=== PATIENT | female | born 1990 | race Caucasian/White ===

== ENCOUNTER 2019-10-09 21:07 | Outpatient (CLI) | payer OTHER, SELFPAY ==
[2019-10-09] VITALS (8 sets, daily range): BP systolic 116–132; BP diastolic 75–84; PULSE 93–113; TEMP 36.7; O2SAT 97; BMI 36.1
[2019-10-09 21:58] LABS: Hematocrit 38.1 % (37-47); Hemoglobin 12.3 g/dL (12.0-15.0); Mean Corp Hgb Conc 32.3 g/dL (32-36); Mean Corpuscular Hgb 28.4 pg (27.0-32.0); Mean Platelet Vol. 11.2 fl (6.2-12.0); Platelet Count 252 K/mm3 (150-450); RBC Distribution Width CV 17.7 % (11.6-14.6); RBC Distribution Width SD 56.5 fl (35.1-43.9); Red Blood Count 4.33 M/mm3 (4.2-5.4); White Blood Count 8.9 K/mm3 (4.4-11.0)
[2019-10-09 22:15] LABS: Protein, Urine (Random) < 6.0 mg/dL (<11.9)
[2019-10-09 22:17] LABS: ALB/GLOB Ratio 0.6 RATIO (0.9-2.4); AST(SGOT) 17 U/L (15-37); Alanine Aminotransfer ALT/SGPT 14 U/L (13-56); Albumin, Serum 2.3 g/dL (3.2-5.0); Alkaline Phosphatase 182 U/L (45-117); Anion Gap 9 (5-15); BUN 6 mg/dL (7-18); BUN/Creat Ratio 8.9 RATIO (10-20); Calcium,Total 8.9 mg/dL (8.5-10.1); Chloride 108 mmol/L (98-107); Creatinine, Serum 0.67 mg/dL (0.55-1.02); EST Glomerular Filtration Rate 112 mL/min (>60); Est Glom Filt Rate - Afr Amer 135 mL/min (>60); Estimated Creatinine Clearance 118.07 ml/min; Glucose 85 mg/dL (74-106); Potassium 4.1 mmol/L (3.5-5.1); Protein, Total 6.3 g/dL (6.4-8.2); Sodium Level 140 mmol/L (136-145); Uric Acid 5.7 mg/dL (2.6-6.0)
[2019-10-09] MEDS: Acetaminophen/Butalbital/Caffe 1 Tablet 2 TABLET PO (22:37)
--- NOTE | 2019-10-10 06:00 | OB.TRI.NOTE ---
- Problem List (1) 37 weeks gestation of Status: Acute (2) Headache Status: Acute History of Present Illness Date of Service: 10/09/19 Was patient seen by the physician?: No Reason For Visit: R/O PRE ECLAMPSIA Date of Service: 10/09/19 Final GAEL: 10/26/19 Gestational age: 37 Weeks and 5 Days History of Present Illness: Called in with a frontal headache and nausea. She was checking her blood pressures at home and they were 140s over 90s. She denies vision changes, epigastric pain, right upper quadrant pain. No history of hypertension. She has also had excessive weight gain in and bilateral lower extremity edema. Allergies amoxicillin Allergy (Verified 10/09/19 21:55) Swelling shellfish derived Allergy (Verified 10/09/19 21:55) PT UNSURE OF REACTION Laboratory Studies: Laboratory Tests 10/09/19 10/09/19 10/09/19 Range/Units 21:47 21:47 21:40 WBC 8.9 (4.4-11.0) K/mm3 RBC 4.33 (4.2-5.4) M/mm3 Hgb 12.3 (12.0-15.0) g/dL Hct 38.1 (37-47) % MCV 88.0 (81-99) fL MCH 28.4 (27.0-32.0) pg MCHC 32.3 (32-36) g/dL RDW Std Deviation 56.5 H (35.1-43.9) fl RDW Coeff of Morgan 17.7 H (11.6-14.6) % Plt Count 252 (150-450) K/mm3 MPV 11.2 (6.2-12.0) fl Sodium 140 (136-145) mmol/L Potassium 4.1 (3.5-5.1) mmol/L Chloride 108 H (98-107) mmol/L Carbon Dioxide 23.0 (21.0-32.0) mmol/L Anion Gap 9 (5-15) BUN 6 L (7-18) mg/dL Creatinine 0.67 (0.55-1.02) mg/dL Estim Creat Clear Calc 118.07 ml/min Est GFR (MDRD) Af Amer 135 (>60) mL/min Est GFR (MDRD) Non-Af 112 (>60) mL/min BUN/Creatinine Ratio 8.9 L (10-20) RATIO Glucose 85 (74-106) mg/dL Uric Acid 5.7 (2.6-6.0) mg/dL Calcium 8.9 (8.5-10.1) mg/dL Total Bilirubin 0.20 (0.20-1.00) mg/dL AST 17 (15-37) U/L ALT 14 (13-56) U/L Alkaline Phosphatase 182 H (45-117) U/L Total Protein 6.3 L (6.4-8.2) g/dL Albumin 2.3 L (3.2-5.0) g/dL Globulin 4.0 (2.2-4.2) g/dL Albumin/Globulin Ratio 0.6 L (0.9-2.4) RATIO U Random Total Protein < 6.0 (<11.9) mg/dL Urine Creatinine 31.90 (NO RANGE EST.) mg/dL Protein/Creatinin Ratio TNP Review of Systems Eyes: Denies: Blurred vision, Double vision, Vision Change HEENT: Reports: Head Aches Gastrointestinal: Denies: Abdominal Pain, Vomiting Physical Exam Vitals: Vital Signs Temp Pulse BP Pulse Ox 98.0 F 93 117/75 97 10/09/19 21:27 10/09/19 22:29 10/09/19 22:29 10/09/19 21:28 NST - FHR Rate Baby A Baseline: 135 Variability:: Moderate Accelerations:: 15 x 15 Decelerations:: None NST Reactive:: Yes Uterine Activity:: Irregular ctx's Impression/Plan Serial blood pressures obtained and all within normal limits Preeclampsia labs within normal limits Protein creatinine ratio not elevated Fioricet given for headache Instructed to call the office in the morning if headache not resolved. Has follow-up in the office in a few days for routine revisit
== END 2019-10-09 22:40 | disposition home or self-care (01) ==
LOC: WPOUT 21:14 → OBT 21:14
PROVIDERS: Advanced Practice Midwife; Visit Provider Obstetrics & Gynecology
DX: O99.89 Other specified diseases and conditions complicating pregnancy, childbirth and the puerperium (principal); R03.0 Elevated blood-pressure reading, without diagnosis of hypertension; O26.03 Excessive weight gain in pregnancy, third trimester; O12.03 Gestational edema, third trimester; Z3A.37 37 weeks gestation of pregnancy
CPT/HCPCS: 36415; 59025; 59050; 80053; 82570; 84156; 84550; 85027; 99218; G0378

== ENCOUNTER 2019-10-20 09:30 | Inpatient (IN) | payer OTHER, SELFPAY ==
[2019-10-09 21:15] VITALS: BMI 36.1
[2019-10-17 10:44] LABS: Probe Check PASS; Specimen Processing Control PASS
[2019-10-20] VITALS (22 sets, daily range): BP systolic 104–136; BP diastolic 44–84; PULSE 73–105; RESP 14–18; TEMP 36–36.8; O2SAT 96–100; BMI 35.8
[2019-10-20] MEDS: Lactated Ringers 1,000 ML 999 ML IV (09:55)
[2019-10-20 10:19] LABS: Absolute Neutrophil Count 5.9 X10^3/uL (2.0-7.7); Basophil# 0.05 X10^3/uL; Basophil% 0.6 % (0-1); Eosinophil# 0.23 X10^3/uL; Eosinophils% 2.5 % (0-5); Hemoglobin 13.3 g/dL (12.0-15.0); Lymphocyte % 23.2 % (19-41); Mean Corp Hgb Conc 32.4 g/dL (32-36); Mean Corpuscular Hgb 28.6 pg (27.0-32.0); Mean Corpuscular Volume 88.2 fL (81-99); Monocyte# 0.67 X10^3/uL; Monocyte% 7.4 % (0-10); NRBC Flagged by Analyzer 0 % (0-5); Neutrophil # 5.92 X10^3/uL (2.7-7.7); Neutrophil % 65.4 % (47-70); Platelet Count 244 K/mm3 (150-450); RBC Distribution Width CV 17.9 % (11.6-14.6); RBC Distribution Width SD 57.6 fl (35.1-43.9); Red Blood Count 4.65 M/mm3 (4.2-5.4); White Blood Count 9.1 K/mm3 (4.4-11.0)
[2019-10-20] MEDS: Lactated Ringers 1,000 ML 150 ML IV (10:55)
[2019-10-20] MEDS: Sodium Citrate/Citric Acid 30 ML UDC PO (12:00)
--- NOTE | 2019-10-20 12:11 | PCM.HP.OB ---
- Problem List (1) 39 weeks gestation of Status: Acute (2) LGA (large for gestational age) fetus Status: Acute (3) Excessive weight gain affecting Status: Acute (4) Anemia affecting Status: Acute History Date of Admission: 10/20/19 Final GAEL: 10/26/19 Gestational age: 39 Weeks and 1 Days History of this : This is a 29 year-old, G [], P [], at 39 weeks gestational age. Medical History: Medical History (Last Updated 10/20/19 @ 12:[address] Kaela Mcmanus, DO) Asthma J45.909 Depression F32.9 History of deviated nasal septum Z87.09 Umbilical hernia K42.9 Surgical History: Surgical History (Last Updated 10/20/19 @ 12:[address] Kaela Mcmanus, ) History of breast surgery Z98.890 History of knee surgery Z98.890 Allergies amoxicillin Allergy (Verified 10/20/19 11:09) Swelling shellfish derived Allergy (Verified 10/20/19 11:09) PT UNSURE OF REACTION Home Medications: Home Medications Cetirizine HCl [Zyrtec] 10 mg PO DAILY 10/09/19 Ferrous Sulfate 325 mg PO QODAY 10/09/19 Vits [Prenatabs FA] 1 tab PO DAILY 10/09/19 Vitamin D3 1 tab PO DAILY 10/09/19 Smoking Status: Never smoker Number of Fetus(es): 1 NST - FHR Rate Baby A FHR Category:: Category I History Past Pregnancies: Past Pregnancies Delivery Date Name GA/ Weeks Outcome Route Wt Infant Sex Labor Length Anesthesia Delivery Location Provider FOB Labs: See [facility] records Expected Infant Delivery Method: Primary Section Review of Systems Constitutional: Denies: Chills, Fever Eyes: Denies: Blurred vision HEENT: Denies: Head Aches Cardiovascular: Denies: Chest Pain Respiratory: Denies: Cough, Shortness of Breath Gastrointestinal: Denies: Abdominal Pain Genitourinary: Denies: Dysuria Gynecological: Denies: Vaginal bleeding Psychiatric: Reports: Depression - History of Physical Exam Vitals: Vital Signs Temp 98.3 F 10/20/19 10:05 General: Alert, No apparent distress HEENT: Atraumatic Lungs: Normal air movement Abdomen: Soft, Non Tender, Gravid Extremities:: No edema Neurological: Neuro grossly intact Estimated gestational size: Large for gestational age Assessment/Plan All Active Problems 37 weeks gestation of (Acute) Headache (Acute) 39 weeks gestation of (Acute) LGA (large for gestational age) fetus (Acute) Excessive weight gain affecting (Acute) Anemia affecting (Acute) This is a 29 year-old, G 1, P 0, at 39 weeks gestational age comes for a scheduled primary section for an LGA fetus. She had an ultrasound on October 13 that shows the estimated weight to be greater than the 90th percentile. The ultrasound reports LGA and suspected macrosomia at 4300 g. Risks and benefits of a section, induction, and vaginal delivery were discussed with the patient. Questions answered. After discussion of r/b/a to a primary section, the patient desires to proceed with a section. Consent was signed. - Routine pre-op care
[2019-10-20] MEDS: Methylergonovine 0.2 MG/ML Ampul IM (13:08)
--- NOTE | 2019-10-20 13:41 | PCM.OPRPT ---
Problem List (1) 39 weeks gestation of Status: Acute (2) LGA (large for gestational age) fetus Status: Acute (3) Excessive weight gain affecting Status: Acute (4) Anemia affecting Status: Acute Report of Operation Date of Procedure: 10/20/19 Pre-Operative Diagnosis: 39 week gestation, LGA Post-Operative Diagnosis: As above Surgery/Procedure Performed:: PLTCS via pfannenstiel incision Description of Surgical Findings:: Viable infant in vertex position. Clear fluid. Normal-appearing uterus, bilateral tubes, bilateral ovaries. Normal-appearing and intact placenta with a three-vessel cord. Type of Anesthesia:: Spinal Special Medications: None Specimen's removed: Placenta Drains: Sharpe Estimated Blood Loss (mL): 900 Fluids Replaced: 1500 Description of Procedure: The patient was taken to the operating room where spinal anesthesia was performed and found to be adequate. She was prepped and draped in the dorsal position with a leftward tilt. A Pfannenstiel skin incision was made with a scalpel and carried down to the underlying layer of fascia. The fascia was incised in the midline. The fascia was extended laterally using White scissors. Fascia was dissected off the rectus muscles with sharp and blunt dissection. The fascia was in the midline and the peritoneum was entered bluntly. The incision was extended bluntly with good visualization of the bladder. Large flap was created. A low transverse incision was made on the uterus with a scalpel. Membranes were ruptured for clear fluid. Infant was delivered in vertex presentation without any force or delay. The cord was clamped and cut after a 60 sec delay. Stent was removed with manual extraction and noted to be normal-appearing with a three-vessel cord. The uterus was exteriorized. The uterus was cleared of all clot and debris. The uterus was closed with Vicryl in a 2 layer closure. Joshua was placed over the hysterotomy. The uterus was placed back in the abdomen. The peritoneum was closed in a running fashion. The fascia was closed in a running fashion. The subcutaneous space was irrigated and made hemostatic with Bovie cautery. The subcutaneous space was reapproximated. The skin was closed in a subcuticular fashion. Dressing was placed. Instrument and sponge counts were correct and patient was taken recovery room in stable condition. Grafts/Implants Used: None - Complications None - Admit VTE Documentation VTE Present on Admission: No VTE Mechan Device Prophylaxis: SCD's Delivery Classification: Scheduled Amniotic Fluid Description: Clear Drain: Sharpe to straight drain Cord Entanglement: None Delayed cord clamping: Yes Pt instructed on risks of surgery: Bleeding, Infection, Injury to surrounding structure(s) including bowel and bladder Complications: None - Admit VTE Documentation VTE Present on Admission: No VTE Mechan Device Prophylaxis: SCD's VTE Pharm Prophylaxis ordered?: Yes
[2019-10-20] MEDS: Oxytocin 30 units/NS 500 ml 30 UNITS/500 ML IV.SOLN 167 UNITS IV (14:05)
[2019-10-20] MEDS: Ketorolac 30 MG/ML Syringe IV (15:35)
[2019-10-20] MEDS: Lactated Ringers 1,000 ML 100 ML IV (16:53)
[2019-10-20] MEDS: 0.9% Saline Lock 10 ML Syringe IV ×2 (20:45→21:41)
[2019-10-20] MEDS: Ondansetron 4 MG/2 ML Vial IV (21:41)
[2019-10-21] VITALS (12 sets, daily range): BP systolic 102–124; BP diastolic 58–98; PULSE 75–93; RESP 14–18; TEMP 36.4–36.9; O2SAT 94–97
[2019-10-21] MEDS: Enoxaparin 40 MG/0.4 ML Syringe SC (01:30)
[2019-10-21] MEDS: 0.9% Saline Lock 10 ML Syringe IV ×4 (01:30→20:11)
[2019-10-21] MEDS: Ketorolac 30 MG/ML Syringe IV ×4 (01:30→20:11)
[2019-10-21 06:25] LABS: Hematocrit 32.5 % (37-47); Hemoglobin 10.6 g/dL (12.0-15.0); Mean Corp Hgb Conc 32.6 g/dL (32-36); Mean Corpuscular Hgb 29.3 pg (27.0-32.0); Mean Corpuscular Volume 89.8 fL (81-99); Mean Platelet Vol. 10.5 fl (6.2-12.0); Platelet Count 177 K/mm3 (150-450); RBC Distribution Width CV 17.8 % (11.6-14.6); RBC Distribution Width SD 58.5 fl (35.1-43.9); Red Blood Count 3.62 M/mm3 (4.2-5.4); White Blood Count 11.2 K/mm3 (4.4-11.0)
--- NOTE | 2019-10-21 07:39 | PN.OBGYN_ITS ---
Patient Problems: Active and Suspected Problems (Last Updated 10/20/19 @ 12:[address] Kaela Mcmanus, DO) 39 weeks gestation of (Acute) LGA (large for gestational age) fetus (Acute) Excessive weight gain affecting (Acute) Anemia affecting (Acute) Subjective: Patient seen at bedside. Pain well controlled. Ambulating in room and voiding without difficulty. going well. Objective: Dressing dry and intact, no drainage noted. Fundus Firm at U. Lochia decreasing - Physical Exam Vitals/I&O's: Vital Signs Temp Pulse Resp BP Pulse Ox 98.4 F 93 14 124/98 H 97 10/21/19 03:14 10/21/19 07:04 10/21/19 07:04 10/21/19 03:14 10/21/19 07:04 Oxygen Delivery Method Room Air Weight: 222 lb Body Mass Index (BMI) 35.8 Intake and Output for Last 24 Hours 10/19/19 10/20/19 10/21/19 23:59 23:59 23:59 Intake Total 4477.62 / 4477.62 240 / 240 Output Total 575 / 575 1100 / 1100 Balance 3902.62 / 3902.62 -860 / -860 General: Alert, Oriented x3, Cooperative HEENT: Atraumatic, PERRLA, EOMI, Normocephalic Neck: Supple Lungs: Normal air movement Abdomen: Bowel Sounds Present - Not passing flatus at this time. Advised to continue to ambulate, Soft Skin: No rashes Neurological: Cranial nerves II-XII grossly intact Psych/Mental Status: Normal Affect, Appropriate Laboratory Results 10/20/19 09:55: WBC 9.1, RBC 4.65, Hgb 13.3, Hct 41.0, MCV 88.2, MCH 28.6, MCHC 32.4, RDW Std Deviation 57.6 H, RDW Coeff of Morgan 17.9 H, Plt Count 244, MPV 11.0, Immature Gran % (Auto) 0.900, Neut % (Auto) 65.4, Lymph % (Auto) 23.2, Kay % (Auto) 7.4, Eos % (Auto) 2.5, Baso % (Auto) 0.6, Absolute Neuts (auto) 5.9, Absolute Lymphs (auto) 2.10, Nucleated RBC % 0 06/08/20 09:55: Blood Type A POSITIVE, Antibody Screen NEGATIVE 10/21/19 06:15: WBC 11.2 H, RBC 3.62 L, Hgb 10.6 L, Hct 32.5 L, MCV 89.8, MCH 29.3, MCHC 32.6, RDW Std Deviation 58.5 H, RDW Coeff of Mrogan 17.8 H, Plt Count 177, MPV 10.5 Current Medications Acetaminophen (Tylenol) 1,000 mg PO Q8H PRN PRN Reason: Pain Score 1-3/10 Bisacodyl (Dulcolax) 10 mg RECTAL UD PRN PRN Reason: If no BM Enoxaparin Sodium (Lovenox) 40 mg SC DAILY@0130 [facility] Last Admin: 10/21/19 01:30 Dose: 40 mg Documented by: Hydrocortisone (Hytone) 1 applic TOPICAL TID PRN PRN; Protocol PRN Reason: Discomfort Lactated Ringer's () 1,000 mls @ 100 mls/hr IV .Q10H [facility] Last Admin: 10/21/19 01:31 Dose: Not Given Documented by: Naloxone HCl 4 mg/ Dextrose 504 mls @ 0 mls/hr IV .Q0M PRN; Protocol PRN Reason: Respiratory depression Ibuprofen (Motrin) 600 mg PO Q6H PRN PRN PRN Reason: Pain Score 1-3/10 Ketorolac Tromethamine (Toradol (Bkc)) 30 mg IV Q6H [facility] Stop: 10/22/19 08:01 Last Admin: 10/21/19 01:30 Dose: 30 mg Documented by: Methylergonovine Maleate (Methergine) 0.2 mg IM X1 PRN PRN Reason: Uterine Atony Last Admin: 10/20/19 13:08 Dose: 0.2 mg Documented by: Naloxone HCl (Narcan) 0.02 mg IV Q1M PRN PRN Reason: RR <10 and pt unresponsive Ondansetron HCl (Zofran) 4 mg IV Q4H PRN PRN PRN Reason: Nausea Last Admin: 10/20/19 21:41 Dose: 4 mg Documented by: Oxycodone HCl (Oxyir) 5 - 10 mg PO Q4H PRN PRN PRN Reason: Pain Score 4-10/10 Prochlorperazine Edisylate (Compazine Iv) 10 mg IV Q6H PRN PRN PRN Reason: NAUSEA Senna/Docusate Sodium (Senokot-S, Kacey-Colace) 0 tablet PO DAILY PRN PRN Reason: Constipation Simethicone (Mylicon) 80 mg PO PCHS PRN PRN Reason: Indigestion/stomach pain Sodium Chloride () 5 - 15 ml IV UD PRN PRN Reason: SALINE FLUSH Last Admin: 10/21/19 01:30 Dose: 10 ml Documented by: Medical Necessity - Tobacco Use Smoking Status: Never smoker Assessment/Plan All Active Problems (Last Updated 10/20/19 @ 12:[address] Kaela Mcmanus, DO) 37 weeks gestation of (Acute) Headache (Acute) 39 weeks gestation of (Acute) LGA (large for gestational age) fetus (Acute) Excessive weight gain affecting (Acute) Anemia affecting (Acute) Post-op primary c/s Pain control Ambulation Continue plan of care for post Anticipate discharge home tomorrow
[2019-10-21] MEDS: Senna/Docusate Sodium 1 Tablet PO (08:38)
[2019-10-21] MEDS: Acetaminophen 500 MG Tablet 1000 MG PO (12:14)
[2019-10-22 02:27] VITALS: BP 137/74; PULSE 104; RESP 18; TEMP 36.7
[2019-10-22] MEDS: Ketorolac 30 MG/ML Syringe IV (02:28)
[2019-10-22] MEDS: Enoxaparin 40 MG/0.4 ML Syringe SC (02:29)
[2019-10-22] MEDS: 0.9% Saline Lock 10 ML Syringe IV (02:30)
[2019-10-22 08:10] VITALS: BP 122/77; PULSE 88; RESP 14; TEMP 36.5
--- NOTE | 2019-10-22 09:49 | PCM.PN.OB ---
Patient Problems: Active and Suspected Problems (Last Updated 10/20/19 @ 12:[address] Kaela Mcmanus, DO) 39 weeks gestation of (Acute) LGA (large for gestational age) fetus (Acute) Excessive weight gain affecting (Acute) Anemia affecting (Acute) Subjective: Doing well per patient and nursing staff. Ambulating and taking PO without difficulty. Voiding and passing flatus. Pain controlled. . Denies headache, visual changes, chest pain, SOB, increased vaginal bleeding or clots. Planning D/C home today. - Physical Exam Vitals/I&O's: Vital Signs Temp Pulse Resp BP Pulse Ox 97.7 F L 88 14 122/77 H 94 10/22/19 08:10 10/22/19 08:10 10/22/19 08:10 10/22/19 08:10 10/21/19 15:40 Oxygen Delivery Method Room Air Weight: 222 lb Body Mass Index (BMI) 35.8 Intake and Output for Last 24 Hours 10/20/19 10/21/19 10/22/19 23:59 23:59 23:59 Intake Total 4477.62 / 4477.62 1340 / 1340 Output Total 575 / 575 1850 / 1850 Balance 3902.62 / 3902.62 -510 / -510 General: Alert, Oriented x3 HEENT: Atraumatic, Normocephalic Neck: Trachea Midline Lungs: Clear to auscultation, Normal air movement, No rhonchi, No wheeze Cardiovascular: Regular rate, Regular Rhythm, No murmurs Abdomen: Bowel Sounds Present, Soft - Fundus firm 3 below U. Dressing dry and intact. Extremities: No edema - Prudence's negative Psych/Mental Status: Normal Affect, Appropriate Current Medications Acetaminophen (Tylenol) 1,000 mg PO Q8H PRN PRN Reason: Pain Score 1-3/10 Last Admin: 10/21/19 12:14 Dose: 1,000 mg Documented by: Bisacodyl (Dulcolax) 10 mg RECTAL UD PRN PRN Reason: If no BM Enoxaparin Sodium (Lovenox) 40 mg SC DAILY@0130 [facility] Last Admin: 10/22/19 02:29 Dose: 40 mg Documented by: Hydrocortisone (Hytone) 1 applic TOPICAL TID PRN PRN; Protocol PRN Reason: Discomfort Naloxone HCl 4 mg/ Dextrose 504 mls @ 0 mls/hr IV .Q0M PRN; Protocol PRN Reason: Respiratory depression Ibuprofen (Motrin) 600 mg PO Q6H PRN PRN PRN Reason: Pain Score 1-3/10 Methylergonovine Maleate (Methergine) 0.2 mg IM X1 PRN PRN Reason: Uterine Atony Last Admin: 10/20/19 13:08 Dose: 0.2 mg Documented by: Naloxone HCl (Narcan) 0.02 mg IV Q1M PRN PRN Reason: RR <10 and pt unresponsive Ondansetron HCl (Zofran) 4 mg IV Q4H PRN PRN PRN Reason: Nausea Last Admin: 10/20/19 21:41 Dose: 4 mg Documented by: Oxycodone HCl (Oxyir) 5 - 10 mg PO Q4H PRN PRN PRN Reason: Pain Score 4-10/10 Prochlorperazine Edisylate (Compazine Iv) 10 mg IV Q6H PRN PRN PRN Reason: NAUSEA Senna/Docusate Sodium (Senokot-S, Kacey-Colace) 0 tablet PO DAILY PRN PRN Reason: Constipation Last Admin: 10/21/19 08:38 Dose: 1 tablet Documented by: Simethicone (Mylicon) 80 mg PO PCHS PRN PRN Reason: Indigestion/stomach pain Last Admin: 10/22/19 02:39 Dose: 80 mg Documented by: Sodium Chloride () 5 - 15 ml IV UD PRN PRN Reason: SALINE FLUSH Last Admin: 10/22/19 02:30 Dose: 10 ml Documented by: Medical Necessity - Tobacco Use Smoking Status: Never smoker Assessment/Plan All Active Problems (Last Updated 10/20/19 @ 12:[address] Kaela Mcmanus, DO) 37 weeks gestation of (Acute) Headache (Acute) 39 weeks gestation of (Acute) LGA (large for gestational age) fetus (Acute) Excessive weight gain affecting (Acute) Anemia affecting (Acute) A:POD #2 Primary section P: 1) Routine post op and instructions. 2) Pain management 3) Follow up in 1 week for incision check and 6 weeks for visit.
[2019-10-22] MEDS: Senna/Docusate Sodium 1 Tablet PO (10:26)
[2019-10-22] MEDS: Ibuprofen 600 MG Tablet PO (10:26)
--- NOTE | 2019-10-22 11:31 | DCINST_ITS ---
Discharge Diet: No Restrictions Discharge Activity: May Not Drive - for 2 weeks or while taking narcotic pain meds., May Shower, May Take a Tub Bath - in 7 days. May resume sexual activity in: 4-6 weeks Weight Bearing Status: Full weight bearing Lifting Restrictions: 20 pounds Additional Activity Instructions:: Nothing in the vagina for 4-6 weeks. You may return to work/school in 6 weeks. Call your doctor if your incision/area has: Continuous Slow Oozing, Sudden Increased Bleeding, Increased Pain/ Swelling, Increased Redness, Foul Smelling Discharge Call your doctor if you observe: Fever of 101 or Higher Suture Line Care: Avoid Pulling/Pushing, Avoid Pinching/Bending Additional Instructions: If you experience any of the following, contact your healthcare provider. * Bleeding that soaks a pad every hour for 2 hours * Fever 100.4 or higher * Unrelieved incision or abdominal pain * Swelling, redness, discharge or bleeding from your incision or episiotomy site * Your incision begins to separate * Problems urinating (including inability to urinate or burning while urinating). * Visual changes * Severe headache * Flu-like symptoms * Pain or redness in one of both of your breasts * Pain, warmth, tenderness or swelling in your legs, especially the calf area * Frequent nausea and vomiting * Symptoms of depression or anxiety If you experience any of the following, call 911 or go to the nearest Emergency Room. * Chest pain * Problems breathing * Seizure activity * Partial or complete paralysis of a body part, slurred speech, weakness or drooping of the face, or a sudden inability to walk or hold your balance Allergies/Adverse Reactions: Allergies amoxicillin Allergy (Verified 10/20/19 11:09) Swelling shellfish derived Allergy (Verified 10/20/19 11:09) PT UNSURE OF REACTION Medications to take at Discharge Cetirizine HCl [Zyrtec] 10 mg PO DAILY 10/09/19 Vits [Prenatabs FA ] 1 tab PO DAILY 10/09/19 Vitamin D3 1 tab PO DAILY 10/09/19 Oxycodone [Oxyir] 5 - 10 mg PO Q4H PRN PRN 7 Days #20 tab 10/22/19 The following prescriptions were given: Oxycodone [Oxyir] 5 - 10 mg PO Q4H PRN PRN 7 Days #20 tab PRN Reason: Pain Score 4-10/10 Transmission Status: Pending to [id number] Follow-Up: Call to make an appointment with your doctor for an incision check in 1-2 weeks. You will also need a 6 week post- follow up appointment. Test results from this visit will be discussed in further detail at your follow- up appointment, if applicable. Please Follow Up With: Kaela Mcmanus DO Primary Care Physician: CYNDI ALVARES [Other]
--- NOTE | 2019-10-22 11:36 | DS.PCM_ITS ---
Discharge Date and Diagnosis - Problem List Patient Problems: Active and Suspected Problems (Last Updated 10/20/19 @ 12:[address] Kaela Mcmanus DO) 39 weeks gestation of (Acute) LGA (large for gestational age) fetus (Acute) Excessive weight gain affecting (Acute) Anemia affecting (Acute) Date of Admission: 10/20/19 Date of Discharge: 10/22/19 - Primary Discharge Diagnosis Acute Problems: Active Problems (Last Updated 10/20/19 @ 12:[address] Kaela Mcmanus DO) 39 weeks gestation of (Acute) LGA (large for gestational age) fetus (Acute) Excessive weight gain affecting (Acute) Anemia affecting (Acute) Hospital Course and Treatment Summary of Care Provided: The patient is a 29 year old F [ with primary elective due to suspected macrosomia. section on 10/20/19 by without complications. Normal postoperative course. Discharge home on day #2. ] Patient Problems: Active and Suspected Problems (Last Updated 10/20/19 @ 12:[address] Kaela Mcmanus DO) 39 weeks gestation of (Acute) LGA (large for gestational age) fetus (Acute) Excessive weight gain affecting (Acute) Anemia affecting (Acute) - Physical Exam Vitals/I&O's: Vital Signs Temp Pulse Resp BP Pulse Ox 97.7 F L 88 14 122/77 H 94 10/22/19 08:10 10/22/19 08:10 10/22/19 08:10 10/22/19 08:10 10/21/19 15:40 Oxygen Delivery Method Room Air Weight: 222 lb Body Mass Index (BMI) 35.8 Intake and Output for Last 24 Hours 10/20/19 10/21/19 10/22/19 23:59 23:59 23:59 Intake Total 4477.62 / 4477.62 1340 / 1340 Output Total 575 / 575 1850 / 1850 Balance 3902.62 / 3902.62 -510 / -510 Current Medications Acetaminophen (Tylenol) 1,000 mg PO Q8H PRN PRN Reason: Pain Score 1-3/10 Last Admin: 10/21/19 12:14 Dose: 1,000 mg Documented by: Bisacodyl (Dulcolax) 10 mg RECTAL UD PRN PRN Reason: If no BM Enoxaparin Sodium (Lovenox) 40 mg SC DAILY@0130 [facility] Last Admin: 10/22/19 02:29 Dose: 40 mg Documented by: Hydrocortisone (Hytone) 1 applic TOPICAL TID PRN PRN; Protocol PRN Reason: Discomfort Naloxone HCl 4 mg/ Dextrose 504 mls @ 0 mls/hr IV .Q0M PRN; Protocol PRN Reason: Respiratory depression Ibuprofen (Motrin) 600 mg PO Q6H PRN PRN PRN Reason: Pain Score 1-3/10 Last Admin: 10/22/19 10:26 Dose: 600 mg Documented by: Methylergonovine Maleate (Methergine) 0.2 mg IM X1 PRN PRN Reason: Uterine Atony Last Admin: 10/20/19 13:08 Dose: 0.2 mg Documented by: Naloxone HCl (Narcan) 0.02 mg IV Q1M PRN PRN Reason: RR <10 and pt unresponsive Ondansetron HCl (Zofran) 4 mg IV Q4H PRN PRN PRN Reason: Nausea Last Admin: 10/20/19 21:41 Dose: 4 mg Documented by: Oxycodone HCl (Oxyir) 5 - 10 mg PO Q4H PRN PRN PRN Reason: Pain Score 4-10/10 Prochlorperazine Edisylate (Compazine Iv) 10 mg IV Q6H PRN PRN PRN Reason: NAUSEA Senna/Docusate Sodium (Senokot-S, Kacey-Colace) 0 tablet PO DAILY PRN PRN Reason: Constipation Last Admin: 10/22/19 10:26 Dose: 2 tablet Documented by: Simethicone (Mylicon) 80 mg PO PCHS PRN PRN Reason: Indigestion/stomach pain Last Admin: 10/22/19 02:39 Dose: 80 mg Documented by: Sodium Chloride () 5 - 15 ml IV UD PRN PRN Reason: SALINE FLUSH Last Admin: 10/22/19 02:30 Dose: 10 ml Documented by: Discharge Diet: No Restrictions Discharge Activity: May Not Drive - for 2 weeks or while taking narcotic pain meds., May Shower, May Take a Tub Bath - in 7 days. May resume sexual activity in: 4-6 weeks Weight Bearing Status: Full weight bearing Additional Activity Instructions:: Nothing in the vagina for 4-6 weeks. You may return to work/school in 6 weeks. Call your doctor if your incision/area has: Continuous Slow Oozing, Sudden In creased Bleeding, Increased Pain/ Swelling, Increased Redness, Foul Smelling Discharge Call your doctor if you observe: Fever of 101 or Higher Suture Line Care: Avoid Pulling/Pushing, Avoid Pinching/Bending Home Medications: Medications to take at Discharge Cetirizine HCl [Zyrtec] 10 mg PO DAILY 10/09/19 Vits [Prenatabs FA ] 1 tab PO DAILY 10/09/19 Vitamin D3 1 tab PO DAILY 10/09/19 Oxycodone [Oxyir] 5 - 10 mg PO Q4H PRN PRN 7 Days #20 tab 10/22/19 Following Prescrptions Were Given to Patient: Oxycodone [Oxyir] 5 - 10 mg PO Q4H PRN PRN 7 Days #20 tab PRN Reason: Pain Score 4-10/10 Transmission Status: Pending to [id number] Primary Care Physician: CYNDI ALVARES [Other] Please Follow Up With: Kaela Mcmanus DO Medical Necessity - Tobacco Use Smoking Status: Never smoker Meaningful Use Info Meaningful Use Diagnoses (Choose all that apply): None applicable - VTE Anticoag overlap given w/in hospital stay or rx'd at me?: No Pt receive overlap for 5 days?: No Reason overlap not ordered, prescribed, or given for 5 days: Treatment Not Indicated
== END 2019-10-22 13:10 | disposition home or self-care (01) | DRG 788 ==
PROVIDERS: Admitting Provider Obstetrics & Gynecology; Referring Provider Obstetrics & Gynecology; Visit Provider Obstetrics & Gynecology
PROC: 10D00Z1 Extraction of Products of Conception, Low, Open Approach (ICD-10-PCS; CPT 59514; principal; 2019-10-20 11:45)
DX: O36.63X0 Maternal care for excessive fetal growth, third trimester, not applicable or unspecified (principal); O99.02 Anemia complicating childbirth; D64.9 Anemia, unspecified; O26.03 Excessive weight gain in pregnancy, third trimester; Z3A.39 39 weeks gestation of pregnancy; Z37.0 Single live birth
CPT/HCPCS: 85025; 85027; 86850; 86900; 86901; 87635; 99218; G2023; J7120; A4216; G0378; J2405; U0003

== ENCOUNTER 2021-08-19 09:30 | Inpatient (IN) | payer OTHER, SELFPAY ==
[2021-08-19] VITALS (20 sets, daily range): BP systolic 79–133; BP diastolic 24–77; PULSE 72–103; RESP 16–18; TEMP 36–36.7; O2SAT 96–100; BMI 37.9
[2021-08-19] MEDS: Lactated Ringers 1,000 ML 999 ML IV (10:15)
[2021-08-19] MEDS: Acetaminophen 500 MG Tablet 1000 MG PO ×3 (10:28→22:41)
[2021-08-19 10:34] LABS: Absolute Lymphocyte Count 2.14 X10^3/uL (0.83-4.51); Absolute Neutrophil Count 6.4 X10^3/uL (2.0-7.7); Basophil# 0.03 X10^3/uL; Basophil% 0.3 % (0-1); Eosinophil# 0.13 X10^3/uL; Eosinophils% 1.4 % (0-5); Hematocrit 36.7 % (37-47); Hemoglobin 11.9 g/dL (12.0-15.0); Lymphocyte # 2.14 X10^3/ul (0.83-4.51); Lymphocyte % 22.7 % (19-41); Mean Corp Hgb Conc 32.4 g/dL (32-36); Mean Corpuscular Hgb 26.3 pg (27.0-32.0); Mean Corpuscular Volume 81.2 fL (81-99); Mean Platelet Vol. 10.3 fl (6.2-12.0); Monocyte# 0.67 X10^3/uL; Monocyte% 7.1 % (0-10); NRBC Flagged by Analyzer 0 % (0-5); Neutrophil # 6.37 X10^3/uL (2.7-7.7); Neutrophil % 67.5 % (47-70); Platelet Count 249 K/mm3 (150-450); RBC Distribution Width SD 58.5 fl (35.1-43.9); Red Blood Count 4.52 M/mm3 (4.2-5.4); White Blood Count 9.4 K/mm3 (4.4-11.0)
[2021-08-19] MEDS: Lactated Ringers 1,000 ML 150 ML IV (11:30)
[2021-08-19] MEDS: 0.9% Saline Lock 10 ML Syringe IV ×2 (11:30→20:40)
[2021-08-19] MEDS: Sodium Citrate/Citric Acid 30 ML UDC PO (11:45)
--- NOTE | 2021-08-19 12:01 | PCM.HP.OB ---
HPI - General General Date of Admission: 08/19/21 HPI Narrative MUNIR NGUYEN, is a 30 F who presents for repeat Maternal Data Information Final GAEL: 08/25/21 Gestational age: 39&1 PFSH PFS Medical History (Updated 08/19/21 @ 12:[address] Renetta Jacinto MD) Anxiety Asthma Depression Family history of hearing loss at age younger than 7 years History of deviated nasal septum Polyhydramnios depression Umbilical hernia Home Medications vit,[id number] 1 tab PO DAILY 10/09/19 [History Last Taken 08/18/21] ascorbic acid (vitamin C) [Vitamin C] 25 mg PO DAILY 08/19/21 [History Last Taken 08/18/21] cetirizine [Zyrtec] 5 mg PO DAILY 08/19/21 [History Last Taken 08/18/21] ferrous sulfate 325 mg PO 08/19/21 [History Last Taken 08/18/21] sertraline [Zoloft] 75 mg PO DAILY 08/19/21 [History Last Taken 08/19/21] Allergy/AdvReac Type Severity Reaction Status Date / Time amoxicillin Allergy Swelling Verified 08/19/21 09:57 shellfish derived Allergy PT UNSURE Verified 08/19/21 09:57 OF REACTION Surgical History (Updated 08/19/21 @ 12:[address] Renetta Jacinto MD) History of breast surgery History of knee surgery Previous delivery, delivered Previous section Social History Smoking Status: Never smoker History Elective abortions Hx Para 1 Spontaneous abortions Hx # Term Pregnancies Ectopic pregnancies Hx # Pregnancies Multiple births # of living children Vital Signs Vital Signs Vital Signs: 08/19/21 10:31 Temperature 97.5 F L Temperature Source Temporal Pulse Rate 103 H Respiratory Rate 18 Blood Pressure 121/77 H Blood Pressure Mean 91 Blood Pressure Source Monitor Blood Pressure Position Semi-Fowlers Blood Pressure Location Right Arm Pulse Ox 97 Oxygen Delivery Method Room Air Weight Weight: 234 lb 12.677 oz Body Mass Index (BMI) 37.9 Physical Exam Const alert and oriented x3 HEENT normocephalic Chest inspection of chest normal Resp normal respiratory effort GI soft to palpation, non-tender and non-distended GI Narrative: known umbilical hernia Inspection: gravid external exam normal Labs Labs Labs: Blood Type A POSITIVE Antibody Screen NEGATIVE Hct 36.7 % (37-47) L Hgb 11.9 g/dL (12.0-15.0) L Rhogam given: No See [facility] prenatals Assessment & Plan (1) Previous delivery, delivered: COMMENT: @ 39&1 PLAN: Admit to L&D MOD - discussed R/B/A and plan for repeat . Informed consent signed. COVID negative Routine PP care (2) Polyhydramnios: QUALIFIERS: Fetus number: single or unspecified fetus Trimester: third trimester Qualified Code(s): O40.3XX0 - Polyhydramnios, third trimester, not applicable or unspecified (3) Umbilical hernia: QUALIFIERS: Obstruction and gangrene presence: without obstruction or gangrene Qualified Code(s): K42.9 - Umbilical hernia without obstruction or gangrene
[2021-08-19] MEDS: Clindamycin 900 MG/50 ML BAG 75 MG IV (12:07)
--- NOTE | 2021-08-19 13:24 | OP.PCM_ITS ---
Maternal Data Information Final GAEL: 08/25/21 Gestational age: 39&1 Details Operative Information Date of Procedure: 08/19/21 Pre-Operative Diagnosis: (1) Prior section Post-Operative Diagnosis: Same Indications for : Repeat Elective Indications Narrative: The patient was taken to the operating room where spinal anesthesia was placed & found to be adequate. She was prepped and draped in the dorsal supine position with a leftward tilt. A Pfannenstiel skin incision was made approximately 2 cm above the symphysis pubis and carried through to the underlying fascia with the scalpel. The fascia was incised incised in the midline and extended laterally with the White scissors. The rectus muscles were in the midline and the peritoneum was entered carefully and bluntly. The peritoneal incision was stretched and the bladder blade was inserted. Vesicouterine peritoneum was tented up, incised & then bladder flap created gently. The uterine incision was made in a low transverse fashion with the scalpel and extended superiorly and inferiorly with blunt dissection. The 's head was brought to the incision in the flexed position and delivered without difficulty (after carefully extending the uterine incision on the left side and cutting bilateral rectus muscles for additional room). The head was gently guided to allow delivery of the anterior and posterior shoulders. The body then delivered with fundal pressure in the standard fashion. The 3VC cord was clamped and cut in delayed fashion. The was handed off to the waiting neonatal pediatric nurse. The placenta was delivered with fundal massage and gentle traction in the standard fashion. The uterus was exteriorized and cleared of clots and debris. The uterine incision was closed with #1 Vicryl suture in a running locked fashion. Monocryl suture was used for 1 additional figure of 8 suture. The incision was examined and was found to be hemostatic. The uterus was returned to the abdominal cavity. After irrigating Joshua was placed over the uterine incision as some areas were denuded (but hemostatic). The peritoneum was closed with vicryl suture in running fashion The rectus muscles on the right were re-approximated 0 vicryl suture. The rectus muscle separation on the left was minimal & edges cauterized with the bovie for hemostasis. The rectus muscle was then examined and any bleeding was Bovie cauterized. The fascia was closed with PDS suture in a running standard fashion. The subcutaneous tissue was examining and any bleeding was Bovie cauterized. The subcutaneous tissue was reapproximated with interrupted sutures. The skin was closed in a subcuticular fashion by the PUBLISHING AGENT while I was present in the labor & delivery unit. The remainder of the procedure was performed by me with assistance. All sponge, lap, and needle counts were correct. The patient was taken to her room for recovery in a stable condition. Classification: Scheduled Procedure Type: low transverse folder machine adjuster #1: Rosaline Boone Type of Anesthesia: Spinal Antibiotic Given: Clindamycin 600mg IV x1 and Gentamicin 1.5mg/kg IV x1 Estimated Blood Loss: 800ml Fluids Replaced: 1000ml Procedure Start Time: 12:26 Procedure Stop Time: 13:24 Findings Description of Procedure: Normal maternal uterus and adnexa Presentation: Positive for Vertex Amniotic Membrane Rupture Type: Artificial Amniotic Fluid Description: Clear Placental Delivery Description: Expressed Placenta Disposition: [facility] Specimen(s) Sent to Pathology: none Cord Vessel Description: 3 Vessels Cord Entanglement: None Infant A Gender: Male (Taney, weight = 9-11) (1 minute): 7 (5 minute): 9 Delayed Cord Clamping: Yes Complications Complications: None
[2021-08-19] MEDS: Lactated Ringers 500 ML 999 ML IV (13:45)
[2021-08-19] MEDS: Oxytocin 30 units/NS 500 ml 30 UNITS/500 ML IV.SOLN 167 UNITS IV (13:55)
[2021-08-19] MEDS: Ketorolac 30 MG/ML Syringe IV ×2 (14:44→20:39)
--- NOTE | 2021-08-19 15:51 | NURSING ---
Report given to Mariana MARIE, taking over pt care at this time.
--- NOTE | 2021-08-19 19:38 | NURSING ---
1914- Bedside report given to weight shifter RN who will be resuming care at this time.
[2021-08-20] MEDS: Enoxaparin 40 MG/0.4 ML Syringe SC (00:17)
[2021-08-20 00:24] VITALS: BP 99/57; PULSE 71; RESP 16; TEMP 36.7; O2SAT 96
[2021-08-20] MEDS: 0.9% Saline Lock 10 ML Syringe IV ×2 (02:25→07:49)
[2021-08-20] MEDS: Ketorolac 30 MG/ML Syringe IV ×2 (02:25→07:48)
[2021-08-20] MEDS: Acetaminophen 500 MG Tablet 1000 MG PO ×2 (04:29→10:42)
[2021-08-20 04:46] VITALS: BP 102/63; PULSE 71; RESP 16; TEMP 36.7; O2SAT 96
[2021-08-20 04:50] LABS: Hematocrit 32.6 % (37-47); Hemoglobin 10.6 g/dL (12.0-15.0); Mean Corp Hgb Conc 32.5 g/dL (32-36); Mean Corpuscular Hgb 26.8 pg (27.0-32.0); Mean Corpuscular Volume 82.5 fL (81-99); Mean Platelet Vol. 9.8 fl (6.2-12.0); POSITIVE MORPHOLOGY YES; Platelet Count 198 K/mm3 (150-450); RBC Distribution Width CV 20.2 % (11.6-14.6); RBC Distribution Width SD 59.8 fl (35.1-43.9); Red Blood Count 3.95 M/mm3 (4.2-5.4); White Blood Count 11.3 K/mm3 (4.4-11.0)
[2021-08-20 04:54] LABS: Scan Indicated on CBC? Y/N YES- FLAGS NOTED
[2021-08-20 05:35] LABS: Differential Comment SCANNED
[2021-08-20 07:50] VITALS: BP 105/70; PULSE 75; RESP 16; TEMP 36.6; O2SAT 97
--- NOTE | 2021-08-20 09:03 | PN.OBGYN_ITS ---
Subjective Subjective Pain well controlled. Average lochia. No nausea vomiting. Objective Data Objective Data Vital Signs: Vital Signs Temp Pulse Resp BP Pulse Ox 97.9 F 75 16 105/70 97 08/20/21 07:50 08/20/21 07:50 08/20/21 07:50 08/20/21 07:50 08/20/21 07:50 Oxygen Delivery Method Room Air Weight: 106.5 kg Body Mass Index (BMI) 37.9 Intake & Output: Intake and Output for Last 24 Hours 08/18/21 08/19/21 08/20/21 23:59 23:59 23:59 Intake Total 2384.75 / 2384.75 Output Total 1700 / 1700 1200 / 1200 Balance 684.75 / 684.75 -1200 / -1200 Lab / Micro Data Result Diagrams: 08/20/21 04:40 Labs: Laboratory Results - last 24 hr 08/19/21 10:15: WBC 9.4, RBC 4.52, Hgb 11.9 L, Hct 36.7 L, MCV 81.2, MCH 26.3 L, MCHC 32.4, RDW Std Deviation 58.5 H, RDW Coeff of Morgan 20.0 H, Plt Count 249, MPV 10.3, Immature Gran % (Auto) 1.000 H, Neut % (Auto) 67.5, Lymph % (Auto) 22.7, [place] % (Auto) 7.1, Eos % (Auto) 1.4, Baso % (Auto) 0.3, Absolute Neuts (auto) 6.4, Absolute Lymphs (auto) 2.14, Nucleated RBC % 0 08/19/21 10:15: Blood Type A POSITIVE, Antibody Screen NEGATIVE 08/20/21 04:40: WBC 11.3 H, RBC 3.95 L, Hgb 10.6 L, Hct 32.6 L, MCV 82.5, MCH 26.8 L, MCHC 32.5, RDW Std Deviation 59.8 H, RDW Coeff of Morgan 20.2 H, Plt Count 198, MPV 9.8, Differential Comment SCANNED Micro: Microbiology 08/19/21 09:55 Nasal Secretion SARS-CoV-2 Antigen (Rapid) - Final Physical Exam Const alert General Appearance: cooperative GI GI Narrative: soft, moderate distention, fundus firm, appropriately tender. Abdominal bandage clean dry and intact Assessment & Plan (1) delivery delivered: PLAN: Postoperative day #1 status post repeat section. Mild acute blood loss anemia appropriate for blood loss during surgery. is breast-feeding and doing well. Patient desires discharge home today with routine instructions and prescriptions.
--- NOTE | 2021-08-20 09:05 | DS.PCM_ITS ---
Providers Date of Admission: 08/19/21 Reason For Visit: REPEAT C SECTION Diagnosis Discharge Diagnosis (1) delivery delivered: Status: Acute Code(s): O82 - Encounter for delivery without indication Medications at Discharge Home Medications vit,[id number] 1 tab PO DAILY 10/09/19 ascorbic acid (vitamin C) 25 mg PO DAILY 08/19/21 cetirizine 5 mg PO DAILY 08/19/21 ferrous sulfate 325 mg PO 08/19/21 sertraline [Zoloft] 75 mg PO DAILY 08/19/21 ibuprofen 600 mg PO Q6H PRN PRN #60 tablet 08/20/21 Hospital Course Operations - (Repeat section performed on 08/19/2021 without complications.) Summary of Care Provided Hospital Course: 30-year-old female with history of previous section was admitted on 08/19/2021 for repeat section. This was performed without difficulty. On postoperative day #1 patient was ambulating, urinating tolerating regular diet without difficulty. was breast-feeding and doing well. Patient declined prescriptions for pain medications and was discharged home. Weight / BMI Weight Weight: 106.5 kg Body Mass Index (BMI) 37.9 ABG / Lab / Microbiology Data Result Diagrams: 08/20/21 04:40 Laboratory: Laboratory Results - last 24 hr 08/19/21 10:15: WBC 9.4, RBC 4.52, Hgb 11.9 L, Hct 36.7 L, MCV 81.2, MCH 26.3 L, MCHC 32.4, RDW Std Deviation 58.5 H, RDW Coeff of Mrogan 20.0 H, Plt Count 249, MPV 10.3, Immature Gran % (Auto) 1.000 H, Neut % (Auto) 67.5, Lymph % (Auto) 22.7, [place] % (Auto) 7.1, Eos % (Auto) 1.4, Baso % (Auto) 0.3, Absolute Neuts (auto) 6.4, Absolute Lymphs (auto) 2.14, Nucleated RBC % 0 08/19/21 10:15: Blood Type A POSITIVE, Antibody Screen NEGATIVE 08/20/21 04:40: WBC 11.3 H, RBC 3.95 L, Hgb 10.6 L, Hct 32.6 L, MCV 82.5, MCH 26.8 L, MCHC 32.5, RDW Std Deviation 59.8 H, RDW Coeff of Morgan 20.2 H, Plt Count 198, MPV 9.8, Differential Comment SCANNED Microbiology: Microbiology 08/19/21 09:55 Nasal Secretion SARS-CoV-2 Antigen (Rapid) - Final Meaningful Use Info Meaningful Use Diagnoses (Choose all that apply): None applicable Discharge Plan Admission Admit Date/Time: 08/19/21 09:30 Primary Reason for Your Visit: repeat c/section Attending Provider: Renetta Jacinto Discharge Orders/Prescriptions Prescriptions: New ibuprofen [ibuprofen] 600 MG tablet 600 mg PO Q6H PRN PRN (Reason: pain (scale score 4-6)) Qty: 60 RF: 1 Continued vit,[id number] 1 TABLET tablet 1 tab PO DAILY RF: 0 cetirizine 5 mg Tablet 5 mg PO DAILY RF: 0 sertraline [Zoloft] 50 mg Tablet 75 mg PO DAILY RF: 0 ferrous sulfate 325 mg (65 mg iron) Capsule, Extended Release 325 mg PO RF: 0 ascorbic acid (vitamin C) 25 mg Tablet 25 mg PO DAILY RF: 0 Disposition Disposition (needs filled in before D/C Order can be placed): Home, Self Care
[2021-08-20] MEDS: Senna/Docusate Sodium 1 Tablet PO (10:43)
[2021-08-20] MEDS: Sertraline 50 MG Tablet 75 MG PO (10:43)
--- NOTE | 2021-08-20 12:07 | CASEMGMT ---
Social Work Assessment Labor and Delivery Unit Date of Referral: 08/19/2021 Time of Referral: 15:24 Referred By: Dr. Renetta Jacinto Date of Intervention: 08/20/2021 Time of Intervention: 12:07 Reason for Referral: Mother of baby (MOB) with history of depression, depression, and anxiety. History obtained from: MOB, father of baby (FOB), chart and nursing staff. Household composition: MOB, FOB, Hudson Crawley (: 10/20/2019) and now this , Alvin Leach has private home together. Patient's parent/guardian status: MOB and FOB are , and this is second child together. was planned and accepted. Medical History: MOB with history prior to delivery of this infant. MOB with planned at 39 weeks. born on 08/19/2019 with apgars of 7 and 9 at 1min and 10min. Infant with weight of 4405g. to follow with Dr. Mandy Barragan in the community. MOB plans to use a combination of and bottle feeding for . MOB reports to have not been able to breast feed first due to ?it hurting so much.? MOB states that breast feeding is going ?much better? this time. Educational Status: MOB denies concerns with comprehension or understanding. Financial Status: MOB denies financial concerns. 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 Supplies: MOB reports to have needed infant supplies including a car seat and crib. Childcare/Caregiver(s): MOB to be primary caregiver for until returning to work and other childcare will be provided. MOB?s first child is currently with FOB?s mother. Transportation: MOB denies concerns. Programs/Agencies Involved: MOB denies any active community resources. Children Services/Legal Issues: MOB denies legal concerns or history of children services. Mental Health History: MOB reports history of anxiety, depression, and depression. MOB denies history of suicidal thoughts, plans, intents, or current suicidal thoughts. MOB reports to have been in counseling for a few months to manage depression and to have been started on Zoloft. MOB reports to have been tearful ?all the time? and to believe that difficulty with was a major contributor to MOB?s depression with first . MOB reports to have needed support in the community and home and to be aware of resources that MOB is able to use if depression would come up again. This healthcare social worker able engage with MOB on signs and symptoms of depression. Substance Use History: Denies substance abuse/use. PHQ9: Did not trigger. Family/Social Stressors: Denies current family/social stressors. Support Systems: MOB reports to have support from FOB and family/friends. Depression and Anxiety/Shaken Baby/Safe Sleeping: This healthcare social worker provided MOB with information depression and anxiety as well shaken baby, safe sleeping and [facility] resources. ASSESSMENT: This healthcare social worker met with MOB and FOB in room. in nursery for circumcision. Introduced self and healthcare social worker role. MOB agreeable to speak with this healthcare social worker and provided permission for this healthcare social worker to speak openly with FOB present. MOB denied concerns on returning to the community. MOB with positive and engaged affect and reports to have a connection with infant. Active support and listening provided. PLAN: to discharge to home with MOB and FOB. No other services requested or indicated. David Velarde MSW, JOSI
[2021-08-20 12:58] VITALS: BP 107/62; PULSE 82; RESP 16; TEMP 36.3; O2SAT 95
== END 2021-08-20 14:45 | disposition home or self-care (01) | DRG 787 ==
PROVIDERS: Admitting Provider Obstetrics & Gynecology; Referring Provider Obstetrics & Gynecology; Visit Provider Obstetrics & Gynecology
PROC: 10D00Z1 Extraction of Products of Conception, Low, Open Approach (ICD-10-PCS; CPT 59514; principal; 2021-08-19 11:45)
DX: O34.219 Maternal care for unspecified type scar from previous cesarean delivery (principal); D62 Acute posthemorrhagic anemia; F41.9 Anxiety disorder, unspecified; J45.909 Unspecified asthma, uncomplicated; O90.81 Anemia of the puerperium; O40.3XX0 Polyhydramnios, third trimester, not applicable or unspecified; F32.A Depression, unspecified; O99.344 Other mental disorders complicating childbirth; O99.52 Diseases of the respiratory system complicating childbirth; Z37.0 Single live birth; Z3A.39 39 weeks gestation of pregnancy
CPT/HCPCS: 59025; 59050; 85025; 85027; 86850; 86900; 86901; 87426; 99218; J7120; A4216; G0378